=== PATIENT | male | born 1970 | race American Indian/Alaskan Native ===

== ENCOUNTER 2022-02-12 09:00 | Emergency (ER) | payer SELFPAY ==
[2022-02-12] MEDS ORDERED: ASPIRIN 325 MG TAB PO ONE (10:22)
[2022-02-12] MEDS ORDERED: KETOROLAC 30 MG/1 ML INJ IV ONE (10:24)
[2022-02-12] MEDS ORDERED: SODIUM CHLORIDE 0.9% 1000 ML 1,000 ML ONE (10:28)
[2022-02-12] MEDS ORDERED: SODIUM CHLORIDE 0.9% 1000 ML 1,000 ML IV ONE (10:37)
[2022-02-12 10:54] LABS: Basophils % (Auto) 0.4 % (0.0-1.8); Hematocrit 44.6 % (35.5-45.6); Hemoglobin 14.9 gm/dl (11.8-15.2); Lymphocytes # (Auto) 0.6 K/mm3 (1.2-5.4); Lymphocytes % (Auto) 8.4 % (13.4-35.0); Mean Corpuscular HGB Conc 33 % (32-34); Mean Corpuscular Volume 83 fl (84-94); Monocytes # (Auto) 0.9 K/mm3 (0.0-0.8); Monocytes % (Auto) 12.3 % (0.0-7.3); Platelet Count 146 K/mm3 (140-440); Red Blood Count 5.39 M/mm3 (3.65-5.03); Red Cell Distribution Width 13.4 % (13.2-15.2)
--- NOTE | 2022-02-12 11:08 | XRay Report ---
CHEST 1 VIEW 02/12/2022 10:45 AM INDICATION / CLINICAL INFORMATION: chest pain. COMPARISON: 06/28/2018 FINDINGS: SUPPORT DEVICES: None. HEART / MEDIASTINUM: No significant abnormality. LUNGS / PLEURA: No significant pulmonary or pleural abnormality. No pneumothorax. ADDITIONAL FINDINGS: No significant additional findings. IMPRESSION: 1. No acute findings. Signer Name: Sebastián Mcclellan MD Signed: 02/12/2022 11:03 AM Workstation Name: [facility]
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
[2022-02-12 11:13] LABS: Alanine Aminotransferase 35 units/L (7-56); Albumin 4.3 g/dL (3.9-5); BUN/Creatinine Ratio 11; Blood Urea Nitrogen 11 mg/dL (9-20); Calcium 9.3 mg/dL (8.4-10.2); Hemolysis Index 2
[2022-02-12 14:35] VITALS: BP 152/82
--- NOTE | 2022-02-13 12:10 | Electrocardiograph Report ---
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
== END 2022-02-12 14:35 | disposition home or self-care (01) ==
LOC: ED 09:00
DX: R07.9 Chest pain, unspecified (principal); G47.30 Sleep apnea, unspecified; K21.9 Gastro-esophageal reflux disease without esophagitis; Z91.02 Food additives allergy status; Z79.899 Other long term (current) drug therapy
CPT/HCPCS: 36415; 71045; 80053; 82140; 83880; 84484; 85025; 87040; 93005; 96361; 96374; 99284; J1885; J7030